=== PATIENT | female | born 1960 | race Caucasian/White ===

== ENCOUNTER 2021-11-01 10:10 | Emergency (ER) | payer BC, SELFPAY ==
[2021-11-01 10:26] VITALS: BP 148/81; PULSE 73; RESP 18; TEMP 35.9; O2SAT 96; BMI 32.6
--- NOTE | 2021-11-01 11:09 | ED.GENADULT ---
HPI - General Adult General Chief complaint: Extremity Pain/Injury, Upper Stated complaint: Swollen R hand Time Seen by Provider: 11/01/21 10:59 History of Present Illness HPI narrative: Pt is a 61 year old woman who presents with a one day history of a swollen R hand. Her friend's dog scraped that hand in the last 2 days with its tooth. No open wound but erythema is in the same area on the posterior aspect of the hand. Pt's symptoms are limited to the posterior aspect of the hand with no extension proximally. No fever or chills nausea or vomiting. She otherwise feels well. Not sure on her tetanus shot. Pt state pain is severe. PMH: Significant for Depression, Hypertension and Hyperlipidemia Meds: Paroxetine, Probiotic, Losartan, Toprol, Crestor and ASA Review of Systems Status of ROS: Reports: 10 or more systems reviewed and unremarkable except as noted in History and below [facility] Social History Smoking Status: Current every day smoker What tobacco products do you use: cigarettes Smoking packs per day: 1 Smoking cigarettes per day: 20.0 Years smoked: 45 Smoking pack-years: 45.00 Do you use any of these nicotine containing products: None Second hand tobacco smoke exposure: Yes How often do you have a drink containing alcohol: 2-3 times a week How many standard drinks containing alcohol do you have on a typical day: 1 or 2 How often do you have six or more drinks on one occasion: Never AUDIT-C Alcohol total score: 3 Non-prescribed substance use: denies use service: No Exam Narrative: Exam Narrative: EXAM GENERAL: PATIENT APPEARS COMFORTABLE AND WELL. EYES: NO SCLERAL ICTERUS. LYMPH: NO SUPRACLAVICULAR OR CERVICAL LYMPHADENOPATHY. SKIN: VISIBLE SKIN SEEN DURING EXAM NORMAL OR WITH BENIGN PROCESS ONLY. EXT: MILD SWELLING AND ERYTHEMA IN THE POSTERIOR ASPECT OF THE RIGHT HAND. NO WRIST INVOLVEMENT. GOOD BLOOD FLOW DISTALLY. HEART: REGULAR RATE AND RHYTHM WITH NO MURMURS, RUBS, OR GALLOPS. LUNGS: CLEAR TO AUSCULTATION BILATERALLY WITH NO CRACKLES OR WHEEZES. ABD: SOFT, NON TENDER, NON DISTENDED. PSYCH: GOOD EYE CONTACT, SPEECH IS NOT PRESSURED. Const: Vital Signs, click to edit/add: Vital Signs - 24 hr 11/01/21 10:26 Temperature 96.7 F L Pulse Rate [Pulse Oximeter] 73 Respiratory Rate 18 Blood Pressure [Le ft Upper Arm] 148/81 H Pulse Oximetry 96 Oxygen Delivery Me thod Room Air Course Course Hospital Course: Records reviewed. Pts erythema circled with marker. Pt's tetanus shot investigated. Rocephin 1 gram IM given. Vital Signs Vital signs: Initial Vital Signs Temperature 96.7 F L 11/01/21 10:26 Temperature Source Temporal Artery Scan 11/01/21 10:26 Pulse Rate 73 11/01/21 10:26 Pulse Rhythm 11/01/21 10:26 Respiratory Rate 18 11/01/21 10:26 Blood Pressure 148/81 H 11/01/21 10:26 Blood Pressure Mean 103 11/01/21 10:26 Blood Pressure Position Supine 11/01/21 10:26 Pulse Oximetry 96 11/01/21 10:26 Oxygen Delivery Method 11/01/21 10:26 Vital Signs Temperature 96.7 F L 11/01/21 10:26 Pulse Rate 73 11/01/21 10:26 Respiratory Rate 18 11/01/21 10:26 Blood Pressure 148/81 H 11/01/21 10:26 Pulse Oximetry 96 11/01/21 10:26 Oxygen Delivery Method 11/01/21 10:26 Temperature 96.7 F L 11/01/21 10:26 Pulse Rate 73 11/01/21 10:26 Respiratory Rate 18 11/01/21 10:26 Blood Pressure 148/81 H 11/01/21 10:26 Pulse Oximetry 96 11/01/21 10:26 Oxygen Delivery Method 11/01/21 10:26 Medical Decision Making [facility] Narrative Medical decision making narrative: Differential includes cellulitis, gout and monoarthritis. With history of dog oral exposure, would favor Cellulitis. Will start treatment with Rocephin followed by Keflex with close outpt follow up. Discharge Plan Discharge Clinical Impression: Cellulitis Condition: Stable Instructions: Cellulitis (ED) Additional Instructions: Warm compresses Keflex as directed Tylenol/Motrin Follow up if symptoms worsen. Activity Level: No Restrictions Discharge Diet: Regular Stand Alone Forms: [facility] Info Instructions
[2021-11-01] MEDS: LIDOCAINE 1% 5 ml (pf) 5 ML VIAL 2.1 ML INJECTION (11:57)
[2021-11-01] MEDS: cefTRIAXone 1 GM VIAL IM (11:58)
== END 2021-11-01 12:37 | disposition home or self-care (01) ==
LOC: ED 11:47
PROVIDERS: Emergency Provider Internal Medicine; PCP Family Medicine
DX: L03.113 Cellulitis of right upper limb (principal); W54.0XXA Bitten by dog, initial encounter
CPT/HCPCS: 96372; 99283; 99284; J0696

== ENCOUNTER 2022-05-18 06:09 | Day surgery (SDC) | payer BC, SELFPAY ==
[2022-05-18] VITALS (13 sets, daily range): BP systolic 110–176; BP diastolic 52–85; PULSE 61–74; RESP 16–24; TEMP 36.2–36.8; O2SAT 90–97
--- NOTE | 2022-05-18 06:26 | SUR.PREOP ---
HOME COVID TEST NEGATIVE.
[2022-05-18] MEDS: LACTATED RINGERS 1000 ML 1,000 ML 100 ML IV ×2 (06:35→07:32)
[2022-05-18] MEDS: SODIUM CHLORIDE 0.9 % (FLUSH) 10 ML SYRINGE IVF (06:35)
[2022-05-18] MEDS: CEFAZOLIN 2 GM INJ IVP (07:31)
[2022-05-18] MEDS: BUPIVACAINE 0.25% 30 ML 20 ML INJECTION (07:50)
--- NOTE | 2022-05-18 07:52 | W.ANESCHARGE ---
Anesthesia Charges Start Date/Time Anesthesia Start Date: 05/18/22 Anesthesia Start Time: 07:20 Stop Date/Time Anesthesia Stop Date: 05/18/22 Anesthesia Stop Time: 08:35
--- NOTE | 2022-05-18 08:20 | P.GSOP_ITS ---
Operative Note Date of procedure: 05/18/22 Pre-op diagnosis: 1. Gallbladder adenomyomatosis. Post-op diagnosis: Same Type of Procedure: 1. Laparoscopic cholecystectomy. Indications: 62-year-old female was seen in clinic for evaluation of incidentally discovered gallbladder adenomyomatosis. Patient has been getting MRCP for pancreatic IPMN follow-up. During her last MRCP in February she was noted to have thickening of the gallbladder fundus that was thought to be adenomyomatosis. Patient complained of difficulties with her stomach many years ago and had multiple ultrasounds her gallbladder but surgery was not recommended. Patient did not complain of any recent episodes of pain. On clinical exam she had a not distended not tender abdomen. Given patient's clinical history and her imaging findings, a discussion was held regarding benign nature of adenomyomatosis. However, we also discussed that thickening of the gallbladder fundus is nonspecific and, in rare cases, could be due to gallbladder cancer. After discussions of risks and benefits, patient elected to proceed with laparoscopic cholecystectomy. The procedure was discussed in detail. The risks associated the procedure including infection, bleeding, injury to intra-abdominal organs, and injury to the common bile duct were all discussed with the patient. Procedure Description: After discussing the risks and benefits of the procedure, the patient signed informed consent.? The operative site was marked and the patient was brought to the operating room and placed on the operating table in supine position.? Care was taken to pad the patient's pressure points.?? The patient was then intubated by anesthesia.?? The operative site was then prepped and draped in the usual sterile fashion.? A time-out was then performed. A 5-mm laparoscopy port was placed in the left upper quadrant guided by a 5-mm laparoscope placed into a translucent trochar.~ Passage through the layers of the abdominal wall was visualized with the laparoscope.~ A pneumoperitoneum was established. A 0-degree 5-mm laparoscope was advanced into the abdomen. The ab domen was briefly surveyed, and no adhesions were noted. A 10-mm port were placed supraumbilically and two more 5 mm ports were placed on the right under direct visualization by laparoscope. Omental adhesions just inferior to the umbilicus were noted. Those were not taken down. The camera was then changed to 10 mm 30-degree scope and placed into the abdomen through the 10 mm port. The left upper quadrant port entrance was examined and no injury to intra-abdominal organs was identified. The gallbladder was identified, the fundus grasped and retracted cephalad. There was a cystic appearing thickening on the gallbladder fundus. This was not attached to the liver. No acute inflammation was noted around the gallbladder. The infundibulum was grasped and retracted laterally, exposing the peritoneum overlying the triangle of Calot. This was then divided and exposed in a blunt fashion and with hook cautery. Common bile duct was not identified but care was taken not to injure it. The cystic duct was clearly identified and bluntly dissected circumferentially. Cystic artery was identified and tissues around it were dissected off. The cystic artery was lateral and posterior to the cystic duct. The cystic artery and the cystic duct were clearly going into the gallbladder. The cystic artery was then doubly ligated with surgical clips on the patient's side and singly clipped on the gallbladder side and divided. The cystic duct was then similarly ligated with clips and divided as well. The gallbladder was dissected from the liver bed in retrograde fashion using hookcautery. A prominent vein was noted in the mid gallbladder fossa. This was controlled with one 5 mm clip and the vein was divided near the gallbladder with hook cautery. The gallbladder was placed into an Endo-Catch bag and removed through the supraumbilical incision. Surgical site was examined for bleeding. No bleeding was seen in the surgical field. The fascia of the supraumbilical incision was then closed with 0-0 vicryl using Jose Yuan needle under direct visualization. Pneumoperitoneum was completely reduced after viewing removal of the trocars under direct vision. The skin was then closed with 4-0 monocryl and steristrips were applied. Instrument, sponge, and needle counts were correct at closure and at the conclusion of the case. The patient was transferred to PACU in stable condition.? Sterile dressings were then applied. ? The patient was then woken and transported to the recovery area in stable condition. ? The patient tolerated the procedure well. Findings: Thickening of the gallbladder at the fundus was noted and was not attached to the liver. No acute inflammation was noted. Anesthesia: GETA Surgeon: Buzz Vu MD Estimated blood loss (mL): 5 Specimen: Gallbladder Condition: stable Disposition: PACU
--- NOTE | 2022-05-18 08:39 | W.ANESCHARGE ---
Anesthesia Charges Start Date/Time Anesthesia Start Date: 05/18/22 Anesthesia Start Time: 07:20 Stop Date/Time Anesthesia Stop Date: 05/18/22 Anesthesia Stop Time: 08:35
== END 2022-05-18 10:30 | disposition home or self-care (01) ==
PROVIDERS: PCP Family Medicine; Visit Provider Surgery
PROC: 0FT44ZZ Resection of Gallbladder, Percutaneous Endoscopic Approach (ICD-10-PCS; CPT 47562; principal; 2022-05-18 07:15)
DX: K82.8 Other specified diseases of gallbladder (principal)
CPT/HCPCS: 47562; 00790; 88304; J0330; J0690; J1100; J2250; J2405; J2704; J2710; J3010; J3490; J7120

== ENCOUNTER 2023-07-18 07:13 | Outpatient (CLI) | payer BC, SELFPAY ==
--- OUTSIDE RECORDS SUMMARY | 2023-07-18 07:14 | XMS_ITS | Clinical Summary ---
Author Name Unknown Organization [facility] Address [place], [place] [address] Care Team Providers Care Client Support Administrator Name Role Phone Milly Mitchell MD Primary Care Provider Allergies Active Allergy Reactions Criticality Noted Date Comments Ciprofloxacin Other - Describe In Comment Field 11/13/2015 Nausea, [place] syncopal Clindamycin *Unknown 11/13/2015 Doxycycline Hyclate GI Upset 03/01/2017 Erythromycin Edema,GI Upset 02/24/2009 Metronidazole In Nacl (Iso-Os) GI Upset 04/13/2016 Fluoxetine Other - Describe In Comment Field 11/30/2017 Hydrocodone-Acetaminophe n 02/24/2009 Made her ears feel plugged Bupropion Throat Swelling/Closing High 11/13/2015 Swollen uvula Medications Medication Sig Dispensed Refills Start Date End Date Status aspirin chewable 81 mg chewable tablet Take 81 mg by mouth once daily with a meal. Active lactobacillus rhamnosus, GG, (CULTURELLE) 10 billion cell -200 mg capsule Take 1 Cap by mouth once daily. Active metoprolol succinate (TOPROL XL) 25 mg Sustained-Release tabletIndications:hyp ertension Take 1 Tablet (25 mg) by mouth once daily. Takes at lunch. 90 Tablet 3 02/17/2023 Active losartan-hydrochlorot hiazide (HYZAAR) 100-12.5 mg tabletIndications:HTN (hypertension) Take 1 Tablet by mouth once daily. 90 Tablet 3 02/17/2023 Active PARoxetine (PAXIL) 30 mg tabletIndications:Dep ression, recurrent (HC),Anxiety Take 2 Tablets (60 mg) by mouth at bedtime. 180 Tablet 3 02/17/2023 Active polyethylene glycol-electrolyte (GOLYTELY) 236-22.74-6.74 -5.86 gram suspensionIndications :Encounter for screening colonoscopy Drink 2 liters the day before the procedure and 2 liters 6 hours prior to procedure. 4000 mL 04/22/2023 Active rosuvastatin (CRESTOR) 40 mg tabletIndications:mix ed hyperlipidemia Take 1 Tablet (40 mg) by mouth once daily with evening meal. 90 Tablet 3 02/18/2023 Active lancetsIndications:Di abetes mellitus, new onset (HC) As directed. Test 1 times per day. 100 Each 3 03/03/2023 Active blood sugar diagnostic (Blood Glucose Test) stripIndications:Diab etes mellitus, new onset (HC) Test 1 times per day. 100 Each 3 03/03/2023 Active blood-glucose meterIndications:Diab etes mellitus, new onset (HC) Dispense meter, test strips, lancets covered by pt ins. E11.9 NIDDM type II - Test 1 time/day 1 Each 03/03/2023 Active triamcinolone (ARISTOCORT; KENALOG) 0.1 % creamIndications:Hand dermatitis Apply topically to affected area(s) two times daily. 80 g 03/10/2023 Active Active Problems Problem Noted Date Diagnosed Date Moderate episode of recurrent major depressive d isorder 06/23/2023 Elevated hemoglobin 06/23/2023 IPMN (intraductal papillary mucinous neoplasm) 1 04/06/2021 Encounter for smoking cessation counseling 11/17 Lung nodule < 6cm on CT 11/17/2018 Anal fissure 11/17/2018 HTN (hypertension) 11/17/2018 Anxiety 11/17/2018 Depression, recurrent 11/17/2018 Major depressive disorder 06/01/2017 Hypertension 06/01/2017 Hyperlipidemia 06/01/2017 Sinusitis, chronic 06/01/2017 Tobacco use disorder 06/01/2017 S/P total hip arthroplasty 12/12/2015 Retinal detachment of left eye with multiple kali aks 02/27/2015 Encounters Date Type Department Care Team Description 06/29/2023 Telephone [facility] [address] [place] [address] Milly Mitchell MD Questions 06/24/2023 Orders Only [facility] [address] [place] [address] Milly Mitchell MD <No scans attached> 06/23/2023 9:10 AM CDT Office Visit [facility] [address] [place] [address] Milly Mitchell MD Diabetes; Pre-Op Exam (07/18/2023, Dr Niño, Colonoscopy, [facility]) 06/23/2023 Travel 05/04/2023 Telephone [facility] [address] [place] [address] Joseph Niño MD Questions (Regarding the directions for the Colonoscopy) 04/28/2023 Telephone [facility] [address] [place] [address] Joseph Niño MD Appointment Reminder (Colonoscopy 05/05/2023 arriving at 0930) 04/19/2023 3:30 PM CONTROL SYSTEMS TECHNICIAN Office Visit [facility] [address] [place] [address] Bren Degroot MD Consult (Lesion adjacent to the right nipple) 04/19/2023 Travel from Last 3 Months Immunizations Name Administration Dates Next Due COVID-19 Vaccine Spikevax (M oderna 50mcg/0.5mL) 12YO+ [id number] Formula PF 02/17/2023 COVID-19 vaccine (Pfizer-Bio NTech 30mcg/0.3mL) 12YO+ BIVALENT PF, MDV 02/04/2022 COVID-19 vaccine (Pfizer-Bio NTech 30mcg/0.3mL) PF, MDV 02/19/2021 DTaP 02/09/2008 Influenza Virus, Unspecified 02/16/2013 Influenza, IIV3 (Age 6-35 mos) 12/30/2008,2007,01/30/2007 Influenza, IIV3 (Age >=3 years) 01/10/2012 Influenza, IIV4 02/17/2023,,01/09/2021,2019,01/26/2019,02/22/2018,11/28/2015 Influenza, IIV4 (=>6mos) MDV 02/06/2015 Pneumococcal Poly,23-Valent (Pneumovax) 02/09/2008 Pneumococcal conj 13-Valent (Prevnar 13) 09/12/2015 Tdap 11/17/2018,02/09/2008 Zoster (Shingrix-RZV, recombinant) 03/19/2021, Family History Medical History Relation Name Comments Leukemia Father Dementia Mother Depression Mother Depression Sister 1 Depression Sister 2 Cancer-breast No Family History Cancer-ovarian No Family History Relation Name Status Comments Father Mother Sister 1 Sister 2 Alive Social History Tobacco Use Types Packs/Day Years Used Date Smoking Tobacco: Every Day Cigarettes 0.3 47.3 Started: 03/21/1976 Smokeless Tobacco: Never Tobacco Cessation:Ready to Q uit: No; Counseling Given: Not Answered Alcohol Use Standard Drinks/Week Comments Yes 0 (1 standard drink = 0.6 oz pure alcohol) glass of wine a couple of times per week Humiliation, Afraid, Rape, and Kick questionnair e Answer Date Recorded Fear of Current or Ex-Partner No Emotionally Abused No 12/07/2019 Physically Abused No 12/07/2019 Sexually Abused No 12/07/2019 PHQ-2 Answer Date Recorded PHQ-2 TOTAL SCORE 0 02/17/2023 [facility] - Occupational Stress Questionnaire Answer Date Recorded Feeling of Stress Not at all 12/07/2019 Exercise Vital Sign Answer Date Recorde d Days of Exercise per Week 0 days 2019 Minutes of Exercise per Session 0 min 12/07/2019 Social Connections Answer Date Recorded Frequency of Communication with Friends and Fami ly 0 02/17/2023 Financial Resource Strain Answer Date R ecorded Difficulty of Paying Living Expenses 3 02/17/2023 Difficulty of Paying Living Expenses Not on file 02/17/2023 Food Insecurity Answer Date Recorded Worried About Running Out of Food in the Last Ye ar 1 02/17/2023 Transportation Needs Answer Date Record ed Lack of Transportation (Medical) 1 02/17/2023 Housing Stability Answer Date Recorded Unable to Pay for Housing in the Last Year 1 02/17/2023 Sex and Gender Information Value Date Recorded Sex Assigned at Not on file Gender Identity Not on file Sexual Orientation Not on file Obstetrics History Last Filed Vital Signs Vital Sign Reading Time Taken Comments Blood Pressure 148/81 06/23/2023 9:17 AM CDT Pulse 63 06/23/2023 9:17 AM CDT Temperature 36.8 ??C (98.2 ??F) 05/31/2022 2:50 PM CD T Respiratory Rate 12 05/06/2022 1:13 PM CONTROL SYSTEMS TECHNICIAN Oxygen Saturation 98% 06/23/2023 9:17 AM CDT Inhaled Oxygen Concentration - - Weight 67 kg (147 lb 12.8 oz) 06/23/2023 9:17 AM CDT Height 158.8 cm (5' 2.5) 06/23/2023 9:17 AM CDT Body Mass Index 26.6 06/23/2023 9:17 AM CDT Plan of Treatment Upcoming Encounters Date Type Department Care Team (Late st Contact Info) Description 07/18/2023 7:15 AM CDT Office Visit [facility] [address] [place] [address] Joseph Niño MD [address] [place] [address] Health Maintenance Due Date Last Done Comments Colonoscopy through age 75 08/30/202008/30 (Verified in Care Everywhere or Patient Record) Influenza for age 50-64 11/20/2023 02/18/20 23, 02/04/2022, 01/09/2021, Additional history exists Pneumococcal series for age 6-64 (3 of 3 - PPSV23 or PCV20) 02/13/2024 09/12/2015, 02/09/2008 Depression screening for age 12+ 02/19/2024 02/18/2023, 02/17/2023, 02/17/2023, Additional history exists Mammogram for age 45-75 02/25/2024 02/25/20 23, 01/22/2021, 12/07/2019, Additional history exists BMI (ht and wt on same day) for age 18+ 06/22/2024 06/23/2023, 03/10/2023, 02/17/2023, Additional history exists Lipids for age 45-75 06/22/2028 06/23/2023, 02/17/2023, 02/04/2022, Additional history exists Tetanus booster 11/17/2028 11/17/2018, 02/09/2008 Tdap Completed 11/17/2018, 02/09/2008 Hepatitis C screening for ag e 18-79 Completed 12/07/2019 Zoster (shingles) series for age 50+ Completed 03/19/2021, 01/09/2021 HIV for age 15-65 Completed 02/04/2022 COVID-19 vaccine series Completed 02/18/20, 02/04/2022, 02/19/2021, Additional history exists Medical Devices Implanted Type Area Garbage Collector Supervisor Device Identifier Shelf Expiration Date Model / Serial / Lot Screw Sm Joint 6.5x30mm Canclls Bone - [id number] Implanted:Qty : 1 on 12/12/2015 by Rodri Amaral MD at [facility] Ortho Imp.,Screw s & Plates Right: Hip [employer] 07/26/2020 [id number]# / / [id number] Shell Hip Od48mm Tritanium Cluster Tritanium - [id number] Implanted:Qty : 1 on 12/12/2015 by Rodri Amaral MD at [facility] Right: Hip [employer] 08/26/2020 [id number] / / [id number] Liner Hip Id32mm Szc 0deg Trident X3 - [id number] Implanted:Qty : 1 on 12/12/2015 by Rodri Amaral MD at [facility] Right: Hip [employer] 05/25/2020 [id number] / / [id number] Stem Hip Sz3 127deg Accolade Ii - [id number] Implanted:Qty : 1 on 12/12/2015 by Rodri Amaral MD at [facility] Right: Hip [employer] 07/13/2020 [id number]# / / [id number] Head Hip Od32mm +4 Biolox Delta C-Taper Alumina Cer - [id number] Implanted:Qty : 1 on 12/12/2015 by Rodri Amaral MD at [facility] Right: Hip [employer] 07/05/2020 [id number] # / / [id number] Procedures Procedure Name Priority Date/Time Associated Diagnosis Comments URINE ALBUMIN TO CREATININE RATIO, RANDOM Routine 06/23/2023 9:08 AM CDT Diabetes mellitus, new onset (HC) LIPID PANEL W REFLEX MEASURED LDL Add On 06/23/2023 9:05 AM CDT Diabetes mellitus, new onset (HC) HEPATIC FUNCTION PANEL Add On 06/23/2023 9:05 AM CDT Intermittent diarrhea BASIC METABOLIC PANEL Routine 06/23/2023 9:05 AM CDT Diabetes mellitus, new onset (HC) HEMOGLOBIN A1C Routine 06/23/2023 9:05 AM CDT Diabetes mellitus, new onset (HC) PATH TISSUE EXAM Routine 04/19/2023 3:43 PM CONTROL SYSTEMS TECHNICIAN Lesion of right nipple XR MAMMO KEVIN BILAT DIAG BRENDAN 02/24/2023 2:11 PM CONTROL SYSTEMS TECHNICIAN Lesion of right nipple ANTI HIV 1/2 Routine 02/04/2022 8:37 AM CONTROL SYSTEMS TECHNICIAN Screening for HIV (human immunodeficiency virus) ANTI HCV Routine 12/07/2019 11:53 AM CDT Need for hepatitis C screening test from Last 3 Months or Most Recently Relevant to Health Maintenance Results * (ABNORMAL) URINE ALBUMIN TO CREATININE RATIO, RANDOM (06/23/2023 9:08 AM CDT) ALB RAND URINE 69.9 mg/L 06/23/2023 6:26 PM CDT [facility] CREATININE,URIN E 2.23 g/L 06/23/2023 6:26 PM CDT [facility] ALBUMIN TO CREATININE RATIO,RAND UR 31.3(H) <30.0 mg/g creat 06/23/2023 6:26 PM CDT [facility] Urine URINE SPECIMEN / Unknown Non-Blood / Unknown 06/23/2023 9:08 AM CDT 06/23/2023 9:08 AM CDT Narrative [facility] - 06/23/2023 6:26 PM CDT If Albumin to Creatinine Ratio is elevated, consider the following: ? Elevations seen with incipient nephropathy associated ?? with diabetes mellitus or hypertension. Stress, exercise,hematuria, ?? and urinary tract infection may also produce elevated results. If clinically indicated, confirm with ?24 Hour Albumin to Creatinine Ratio. ?? Milly Mitchell MD URINE [facility] [address] [place] [address], * LIPID PANEL W REFLEX MEASURED LDL (06/23/2023 9:05 AM CDT) CHOLESTEROL,TOTAL 116 100 - 199 mg/dL 06/23/2023 5:20 PM CDT [facility] Comment: Cholesterol, Total Reference Ranges Desirable <200 mg/dL Borderline 200-239 mg/dL High >=240 mg/dL TRIGLYCERIDES 49 <150 mg/dL 06/23/2023 5:20 PM CDT [facility] HDL CHOLESTEROL 55 >40 mg/dL 5:20 PM CDT [facility] NON-HDL CHOLESTEROL 61 <145 mg/dl 06/23/2023 5:20 PM CDT [facility] CHOL/HDL RATIO 2.11 <4.50 06/23/2023 5:20 PM CDT [facility] LDL CHOLESTEROL 51 <=130 mg/dL 06/23/2023 5:20 PM CDT [facility] VLDL CHOLESTEROL 10 <=30 mg/dL 06/23/2023 5:20 PM CDT [facility] PROVIDER ORDERED STATUS RANDOM 06/23/2023 5:20 PM CDT [facility] Blood BLOOD SPECIMEN / Unknown Venipuncture / Unknown 06/23/2023 9:05 AM CDT 06/23/2023 9:06 AM CDT Milly Mitchell MD CHEMISTRY Performing Organization Address [facility] Co de Phone Number [facility] [address] [place] [address], * HEMOGLOBIN A1C MONITORING (POCT) (06/23/2023 9:05 AM CDT) HEMOGLOBIN A1C MONITORING (POCT) 6.2 <=6.4 % 06/23/2023 9:18 AM CDT [facility] Blood BLOOD SPECIMEN / Unknown Venipuncture / Unknown 06/23/2023 9:05 AM CDT 06/23/2023 9:06 AM CDT Narrative [facility] - 06/23/2023 9:18 AM CDT ? (<=6.9%) ? Indicates good control ? (7.0% to 7.9%) ? Indicates fair control ? (>=8.0%) ? Indicates poor control ?? NOTE: ??These thresholds are guidelines and ?individual targets may vary. Falsely low levels may be seen with: Recent Transfusion, Recent Significant Blood Loss, Hemolytic Diseases, or Falsely elevated levels may be seen with: Untreated Anemias, Splenectomy ? Milly Mitchell MD CHEMISTRY Performing Organization Address City/[facility]/ZIP Co de Phone Number [facility] [address] [place] [address], * LIVER PANEL (HEPATIC FUNCTION PANEL) (06/23/2023 9:05 AM CDT) ALBUMIN 4.1 4.0 - 4.9 g/dL 06/23/2023 5:20 PM CDT [facility] PROTEIN,TOTAL 6.4 6.0 - 8.0 g/dL 06/23/2023 5:20 PM CDT [facility] BILIRUBIN,TOTAL 0.2 0.0 - 1.2 mg/dL 06/23/2023 5:20 PM CDT [facility] BILIRUBIN,DIRECT <0.2 0.0 - 0.3 mg/dL 06/23/2023 5:20 PM CDT [facility] BILIRUBIN,INDIRE CT 06/23/2023 5:20 PM CDT [facility] Comment:Unable to calculate, Direct Bili <0.2 ALK PHOSPHATASE 92 35 - 104 IU/L 06/23/2023 5:20 PM CDT [facility] ALT (SGPT) 26 10 - 35 IU/L 06/23/2023 5:20 PM CDT [facility] AST (SGOT) 20 10 - 35 IU/L 06/23/2023 5:20 PM CDT [facility] Blood BLOOD SPECIMEN / Unknown Venipuncture / Unknown 06/23/2023 9:05 AM CDT 06/23/2023 9:06 AM CDT Milly Mitchell MD CHEMISTRY [facility] [address] [place] [address], * (ABNORMAL) BASIC METABOLIC PANEL (06/23/2023 9:05 AM CDT) SODIUM 142 136 - 145 mmol/L 06/23/2023 5:20 PM CDT [facility] POTASSIUM 3.9 3.5 - 5.1 mmol/L 06/23/2023 5:20 PM CDT [facility] CHLORIDE 106 98 - 107 mmol/L 06/23/2023 5:20 PM CDT [facility] CO2,TOTAL 26 22 - 29 mmol/L 06/23/2023 5:20 PM CDT [facility] ANION GAP 10 5 - 18 06/23/2023 5:20 PM CDT [facility] GLUCOSE 110(H) 70 - 99 mg/dL 06/23/2023 5:20 PM CDT [facility] CALCIUM 9.3 8.8 - 10.2 mg/dL 06/23/2023 5:20 PM CDT [facility] BUN 11 8 - 23 mg/dL 06/23/2023 5:20 PM CDT [facility] CREATININE 0.58 0.50 - 0.90 mg/dL 06/23/2023 5:20 PM CDT [facility] BUN/CREAT RATIO 19 10 - 20 5:20 PM CDT [facility] eGFR >90 >90 mL/min/1.7 3m2 06/23/2023 5:20 PM CDT [facility] Comment:As of 2021, eG FR is calculated by the CKD-EPI creatinine equation without race adjustment. ??eGFR can be influenced by muscle mass, exercise, and diet. ??The reported eGFR is an estimation only and is only applicable if the renal function is stable. Blood BLOOD SPECIMEN / Unknown Venipuncture / Unknown 06/23/2023 9:05 AM CDT 06/23/2023 9:06 AM CDT Milly Mitchell MD CHEMISTRY [facility] [address] [place] [address], * PATH TISSUE EXAM (04/19/2023 3:43 PM CONTROL SYSTEMS TECHNICIAN) Case Report Pathology Report ?Case: [id number] ? Authorizing Provider: ??Bren Degroot MD ??Collected: ? 04/19/2023 1543 ? Ordering Location: ? [facility] ?? Received: ?04/19/2023 1557 ? Clinic ? Pathologist: ? Rehana Tijerina MD ? Specimen: ?Right Breast, excision of right breast lesion ? 04/21/2023 1:19 PM CONTROL SYSTEMS TECHNICIAN [facility] Final Diagnosis A) SKIN, RIGHT BREAST, EXCISION: 1. Epidermal inclusion cyst, associated with prominent smooth muscle, see comment 2. Negative for malignancy 04/21/2023 1:19 PM CONTROL SYSTEMS TECHNICIAN [facility] Comment The differential diagnosis of accessory/super numerary nipple is considered; however, the presence of prominent smooth muscle is favored to be site related. Please correlate clinically to determine further patient management. 04/21/2023 1:19 PM CONTROL SYSTEMS TECHNICIAN [facility] Clinical Information Right breast 9:00 4 mm raised slightly scaly papule without any discharge. Adjacent to nipple. 04/21/2023 1:19 PM CONTROL SYSTEMS TECHNICIAN [facility] Gross Description A) Received in formalin, labeled with the patient's name and right breast lesion, is a 0.8 x 0.5 x 0.3 cm pale-pressley skin biopsy. The skin surface is roughened with no obvious lesions grossly identified. The specimen is inked blue, trisected and submitted entirely in one cassette [facility] 04/20/2023 ? 04/21/2023 1:19 PM CONTROL SYSTEMS TECHNICIAN [facility] Microscopic Description The final diagnosis is based on microscopic examination of appropriate sections of all specimens. Additional deeper level sections are examined. 04/21/2023 1:19 PM CONTROL SYSTEMS TECHNICIAN [facility] Additional Information Interpreted at [facility] [place] - [address] [place], [place] [id number] 04/21/2023 1:19 PM CONTROL SYSTEMS TECHNICIAN [facility] Other (Right Breast) Non-Blood / Unknown 04/19/2023 3:43 PM CONTROL SYSTEMS TECHNICIAN 04/19/2023 3:57 PM CONTROL SYSTEMS TECHNICIAN Bren Degroot MD PATHOLOGY/CYTOLO GY [facility] [address] [place] [address], * XR MAMMO KEVIN BILAT DIAG (02/24/2023 2:11 PM CONTROL SYSTEMS TECHNICIAN) Anatomical Region Laterality Modality BREASTS, Breast Left, Breast Right Bilateral Mammography 02/24/2023 2:33 PM CONTROL SYSTEMS TECHNICIAN Impressions 02/25/2023 3:19 PM CONTROL SYSTEMS TECHNICIAN No evidence of malignancy. RECOMMENDATIONS: Consider excising the inflammatory lesion adjacent to the RIGHT nipple. Routine screening mammography. BI-RADS: 2. Benign Results and recommendations discussed with the patient. Dictated by: Rodri Balderas MD @02/24/2023 2:33:34 PM/jane PATIENTS: You will also receive a letter with your examination results in an easy to read format. ??If you have questions about your results, please contact your referring provider. Narrative 02/25/2023 3:19 PM CONTROL SYSTEMS TECHNICIAN As a result of the 21st Century Cures Act, medical imaging exams and procedure reports are released immediately into your electronic medical record. ??You may view this report before your referring provider. ??If you have questions, please contact your health care provider. BILATERAL BREAST MAMMOGRAM DIGITAL DIAGNOSTIC WITH COMPUTER-AIDED DETECTION AND TOMOSYNTHESIS 02/24/2023 ?? RIGHT BREAST ULTRASOUND 02/24/2023 CLINICAL HISTORY: RIGHT breast lump. COMPARISON: 01/22/2021, 12/07/2019, 11/17/2018. TECHNIQUE: Digital BILATERAL mammogram in 4 projections. Real-time ultrasound imaging of RIGHT breast with imaging documentation. BREAST COMPOSITION: There are scattered areas of fibroglandular density. FINDINGS: 3D CC/MLO BILATERAL mammogram images submitted. No suspicious masses or architectural distortion. No suspicious calcifications or adenopathy. Targeted RIGHT breast ultrasound performed in area of concern about the RIGHT nipple performed. No sonographic abnormality is present. Milly Mitchell MD MAMMO * ANTI HIV 1/2 [[id number]] (02/04/2022 8:37 AM CONTROL SYSTEMS TECHNICIAN) Pathologist [facility] HIV-1/HIV-2 ANTIBODY Non-Reacti ve Non-Reacti ve 02/05/2022 10:38 PM CONTROL SYSTEMS TECHNICIAN [facility] Comment:HIV-1 p24 and HIV-1/ HIV-2 Ab not detected. Blood BLOOD SPECIMEN / Unknown Venipuncture / Unknown 02/04/2022 8:37 AM CONTROL SYSTEMS TECHNICIAN 02/04/2022 8:37 AM CONTROL SYSTEMS TECHNICIAN Milly Mitchell MD SEND OUTS [facility] [address] [place] [address], * ANTI HCV (12/07/2019 11:53 AM CDT) Pathologist [facility] HEPATITIS C ANTIBODY Non-React denis Non-React denis 12/07/2019 6:25 PM CDT [facility] Comment:Antibodies to HCV no t detected; does not exclude the possibility of exposure to HCV. Blood BLOOD SPECIMEN / Unknown Butterfly / Unknown 12/07/2019 11:53 AM CDT 12/07/2019 11:54 AM CDT Milly Mitchell MD [facility] [address] [place] [address], [place] from Last 3 Months or Most Recently Relevant to Health Maintenance Advance Directives * Full Code (Latest Code Status on File) Date Activated Date Inactivated Comments 05/31/2017 8:35 PM 06/06/2017 4:12 PM Question Answer Comments Code Status Discussion: Not Discussed * Full Code Date Activated Date Inactivated Comments 12/12/2015 10:52 AM 12/13/2015 5:27 PM * Full Code Date Activated Date Inactivated Comments 12/12/2015 5:55 AM 12/12/2015 10:52 AM * Full Code Date Activated Date Inactivated Comments 02/27/2015 5:16 PM 02/28/2015 2:43 AM * Full Code Date Activated Date Inactivated Comments 09/14/2010 10:30 PM 09/16/2010 2:26 AM Care Teams Client Support Administrator Relationship Specialty Start Date End Date Milly Mitchell MD [address] [place] [address] PCP - General Family Practice 11/30/17
--- NOTE | 2023-07-18 08:13 | W.ANESCHARGE ---
Anesthesia Charges Start Date/Time Anesthesia Start Date: 07/18/23 Anesthesia Start Time: 07:46 Stop Date/Time Anesthesia Stop Date: 07/18/23 Anesthesia Stop Time: 08:10
--- NOTE | 2023-07-18 12:08 | W.ANESCHARGE ---
Anesthesia Charges Start Date/Time Anesthesia Start Date: 07/18/23 Anesthesia Start Time: 07:46 Stop Date/Time Anesthesia Stop Date: 07/18/23 Anesthesia Stop Time: 08:10
== END 2023-07-18 07:14 | disposition home or self-care (01) ==
LOC: OP CLINIC 07:13
PROVIDERS: PCP Family Medicine; Visit Provider Internal Medicine Gastroenterology
DX: Z12.11 Encounter for screening for malignant neoplasm of colon (principal); K62.1 Rectal polyp; K57.30 Diverticulosis of large intestine without perforation or abscess without bleeding
CPT/HCPCS: 00811; 45380; 45385; 88305; J2704